=== PATIENT | female | born 2005 | race Caucasian/White ===

== ENCOUNTER 2024-04-06 18:08 | Emergency (ER) | payer BC ==
[~2024-04-06] VITALS: Ht 152.4 cm; Wt 44.5 kg
[2024-04-06 19:05] LABS: BASOPHILS ABSOLUTE AUTO 0.04 K/mm3 (0.00-0.23); BASOPHILS PERCENT AUTO 0 % (0-2); EOSINOPHILS ABSOLUTE AUTO 0.13 K/mm3 (0.00-0.68); EOSINOPHILS PERCENT AUTO 1 % (0-6); Hematocrit 46.3 % (33.0-51.0); Hemoglobin 14.9 g/dL (11.5-16.0); IMMATURE GRAN ABSOLUTE AUTO 0.07 K/mm3 (0.00-0.10); IMMATURE GRAN PERCENT AUTO 0 % (0-1); LYMPHOCYTES ABSOLUTE AUTO 1.18 K/mm3 (0.84-5.20); LYMPHOCYTES PERCENT AUTO 7 % (21-46); MONOCYTES ABSOLUTE AUTO 0.78 K/mm3 (0.16-1.47); MONOCYTES PERCENT AUTO 4 % (4-13); Mean Corpuscular HGB 27.2 pg (26.0-34.0); Mean Corpuscular HGB Conc 32.2 g/dL (31.5-36.5); Mean Corpuscular Volume 85 fL (80-100); Mean Platelet Volume 9.7 fL (9.1-12.4); NEUTROPHILS ABSOLUTE AUTO 15.81 K/mm3 (1.96-9.15); NEUTROPHILS PERCENT AUTO 88 % (41-73); Platelet Count 347 K/mm3 (150-400); RDW Coefficient Variation 13.5 % (11.7-14.2); RDW Standard Deviation 41.6 fL (35.1-46.3); Red Blood Cell Count 5.47 M/mm3 (3.80-5.20); White Blood Cell Count 18.01 K/mm3 (4.00-11.30)
[2024-04-06 19:22] LABS: Albumin, Blood 3.9 g/dL (3.4-5.0); Bilirubin, Total 0.5 mg/dL (0.1-1.0); Bun/Creatinine Ratio 17.9 (12.0-20.0); Calcium, Blood 9.2 mg/dL (8.5-10.1); Creatinine, Blood 0.73 mg/dL (0.40-1.00); Potassium, Blood 4.1 mmol/L (3.5-5.5); Total Protein, Blood 7.9 g/dL (6.4-8.2)
[2024-04-06] MEDS ORDERED: Ondansetron HCl 2 MG / ML 2ML Vial IV ONE (19:50)
[2024-04-06] MEDS ORDERED: NS 1,000 ML IV SCH ×2 (19:50→20:35)
[2024-04-06 21:09] LABS: Source, Urine Clean Catch
[2024-04-06] MEDS ORDERED: Prochlorperazine Edisylate 10 mg Vial IV ONE (21:10)
[2024-04-06] MEDS ORDERED: Morphine Sulfate 4 MG/1 ML Injection IV ONE (21:10)
[2024-04-06 21:14] LABS: Appearance, Urine Clear (Clear); Bilirubin, Urine Neg (Neg); Blood, Urine Neg (Neg); Color, Urine Pale Yellow (P-Yellow); Glucose Qualitative, Urine Neg (Neg); Ketones, Urine 3+ (Neg); Leukocyte Esterase, Urine Neg (Neg); Nitrite, Urine Neg (Neg); Protein, Urine 1+ (Neg); Urobilinogen, Urine NORM (Normal)
[2024-04-06] MEDS ORDERED: ONDA4ODT MM (22:07)
[2024-04-06] MEDS ORDERED: RX Prepack 2 Tabs Ondansetron ODT 4MG UD ONE (23:10)
== END 2024-04-06 23:48 | disposition home or self-care (01) ==
LOC: ER 18:08
PROVIDERS: Student in an Organized Health Care Education/Training Program
DX: A08.4 Viral intestinal infection, unspecified (principal); E86.1 Hypovolemia; K58.9 Irritable bowel syndrome, unspecified
CPT/HCPCS: 74177; 80053; 81025; 83605; 83690; 84703; 85025; 96374-59; 96375; 99284-25; A9270; J0780; J2270; J2405; J7030; Q9967

== ENCOUNTER → 2024-10-04 | Outpatient (CLI) | payer BC ==
[~2024-10-04] MED LIST: ONDA4ODT MM
== END ==
LOC: LAB 17:03 → LAB SHORT 17:03
DX: N39.0 Urinary tract infection, site not specified (principal)
CPT/HCPCS: 87077; 87086; 87186